=== PATIENT | male | born 1985 | race African-American/Black ===

== ENCOUNTER 2018-07-13 11:15 | Emergency (ER) | payer SELFPAY ==
[2018-07-13] MEDS ORDERED: ASPIRIN 81 MG TABLET, CHEWABLE PO ONE (12:53)
--- NOTE | 2018-07-13 12:55 | ER Document Report ---
ED Medical Screen (RME) - General Chief Complaint: Chest Pain Stated Complaint: CHEST PAIN Time Seen by Provider: 07/13/18 12:49 Mode of Arrival: Ambulatory Information source: Patient TRAVEL OUTSIDE OF THE [place] IN LAST 30 DAYS: No - HPI Patient complains to provider of: BAIRON Notes: 07/13/18 12:53 Patient here with complaints of chest pain and shortness of breath. He states that last evening he had the sudden onset of sharp chest pain making him very short of breath. He was somewhat lightheaded and was seeing spots last evening. Right now he complains of some mild tightness in his chest. No fever. No cough. No recent long trips or surgeries, no leg pain or leg swelling, no cancer, no history of DVT or PE. He denies any personal history of hypertension, high cholesterol, diabetes, CAD, drug use. He is a smoker. Exam No distress, nontoxic-appearing. Lungs clear and equal throughout. Heart sounds normal. Plan CBC, CPK, CK-MB, CMP, troponin, EKG, chest x-ray An initial examination was made on the patient as part of the triage process, and it was determined a more comprehensive evaluation was necessary. Initial labs were ordered and patient was transferred to another provider in the ED who assumed care and finished evaluation and plan. - Related Data Allergies/Adverse Reactions: No Known Allergies Allergy (Verified 02/06/16 12:19) Past Medical History Pulmonary Medical History: Reports: Hx Asthma - child until 15 - Immunizations Immunizations up to date: No Hx Diphtheria, Pertussis, Tetanus Vaccination: No Physical Exam - Vital signs Vitals: Temp Pulse Resp BP Pulse Ox 98.6 F 81 18 138/81 H 98 07/13/18 11:07/13/18 11:07/13/18 11:07/13/18 11:07/13/18 11:22 Course - Vital Signs Vital signs: Temp Pulse Resp BP Pulse Ox 98.6 F 81 18 138/81 H 98 07/13/18 11:22 07/13/18 11:22 07/13/18 11:22 07/13/18 11:22 07/13/18 11:22
[2018-07-13 13:19] LABS: ABSOLUTE EOSINOPHILS # (AUTO) 0.1 10^3/uL (0.0-0.6); ABSOLUTE LYMPHOCYTES (AUTO) 1.4 10^3/uL (0.5-4.7); ABSOLUTE MONOCYTES (AUTO) 0.3 10^3/uL (0.1-1.4); ABSOLUTE NEUT (AUTO) 3.2 10^3/uL (1.7-8.2); BASOPHILS % (AUTO) 0.5 % (0-2); EOSINOPHILS % (AUTO) 2.2 % (0-6); HEMATOCRIT 44.8 % (37.9-51.0); HEMOGLOBIN 14.9 g/dL (13.5-17.0); LYMPHOCYTES % (AUTO) 27.2 % (13-45); MEAN CORPUSCULAR HEMOGLOBIN 29.4 pg (27.0-33.4); MEAN CORPUSCULAR HGB CONC 33.3 g/dL (32.0-36.0); MEAN CORPUSCULAR VOLUME 88 fl (80-97); MONOCYTES % (AUTO) 6.3 % (3-13); PLATELET COUNT 187 10^3/uL (150-450); RED BLOOD COUNT 5.07 10^6/uL (4.35-5.55); SEGMENTED NEUTROPHILS % (AUTO) 63.8 % (42-78); TOTAL CELLS COUNTED % (AUTO) 100 %
[2018-07-13 13:37] LABS: ALANINE AMINOTRANSFERASE 24 U/L (21-72); ALBUMIN 4.4 g/dL (3.5-5.0); ALKALINE PHOSPHATASE 69 U/L (38-126); ANION GAP 11 (5-19); ASPARTATE AMINO TRANSFERASE 27 U/L (17-59); BILIRUBIN,DIRECT 0.3 mg/dL (0.0-0.4); BLOOD UREA NITROGEN 7 mg/dL (7-20); CALCIUM 9.7 mg/dL (8.4-10.2); CARBON DIOXIDE 29 mmol/L (22-30); CHLORIDE 108 mmol/L (98-107); CREATINE KINASE 99 U/L (55-170); GLUCOSE 94 mg/dL (75-110); POTASSIUM 4.5 mmol/L (3.6-5.0); SODIUM 148.1 mmol/L (137-145)
[2018-07-13 13:50] LABS: TROPONIN I < 0.012 ng/mL
--- NOTE | 2018-07-13 13:50 | RADIOLOGY REPORT (SQ) ---
EXAM DESCRIPTION: CHEST SINGLE VIEW COMPLETED DATE/TIME: 07/13/2018 1:41 pm REASON FOR STUDY: CP COMPARISON: 01/27/2012. EXAM PARAMETERS: NUMBER OF VIEWS: One view. TECHNIQUE: Single frontal radiographic view of the chest acquired. RADIATION DOSE: NA LIMITATIONS: None. FINDINGS: LUNGS AND PLEURA: No opacities, masses or pneumothorax. No pleural effusion. MEDIASTINUM AND HILAR STRUCTURES: No masses. Contour normal. HEART AND VASCULAR STRUCTURES: Heart normal in size. Normal vasculature. BONES: No acute findings. HARDWARE: None in the chest. OTHER: No other significant finding. IMPRESSION: NO ACUTE RADIOGRAPHIC FINDING IN THE CHEST. TECHNICAL DOCUMENTATION: JOB ID: [id number] 2010 [employer] [facility]- All Rights Reserved Reading location - IP/workstation name: [email or web address]
--- NOTE | 2018-07-13 18:29 | ER Document Report ---
ED General - General Chief Complaint: Chest Pain Stated Complaint: CHEST PAIN Time Seen by Provider: 07/13/18 12:49 Mode of Arrival: Ambulatory Notes: 32-year-old otherwise healthy male presents to the emergency department with chief complaint of chest pain and associated shortness of breath. He said that when he woke up this morning he had sudden onset of sharp chest pain that made him short of breath and lasted for about 10 minutes. It then went away and returned intermittently times after that but not nearly as severe. He said that he was also lightheaded and saw spots. He said the pain was initially very sharp and then felt a chest tightness. He denies fever or cough, denies any long trips or surgeries, no unilateral leg pain or swelling, no history of cancer, no history of DVT, no history of hypertension, patient is a smoker, no history of early cardiac in his family. No nausea or vomiting. No other complaints TRAVEL OUTSIDE OF THE [place] IN LAST 30 DAYS: No - Related Data Allergies/Adverse Reactions: No Known Allergies Allergy (Verified 02/06/16 12:19) Past Medical History - General Information source: Patient - Social History Smoking Status: Current Every Day Smoker Frequency of alcohol use: None Drug Abuse: None Family History: Reviewed & Not Pertinent Patient has suicidal ideation: No Patient has homicidal ideation: No Pulmonary Medical History: Reports: Hx Asthma - child until 15 Renal/ Medical History: Denies: Hx Peritoneal Dialysis - Immunizations Immunizations up to date: No Hx Diphtheria, Pertussis, Tetanus Vaccination: No Review of Systems - Review of Systems Constitutional: See HPI EENT: No symptoms reported Cardiovascular: See HPI Respiratory: See HPI Gastrointestinal: See HPI Genitourinary: No symptoms reported Male Genitourinary: No symptoms reported Musculoskeletal: No symptoms reported Skin: No symptoms reported Hematologic/Lymphatic: No symptoms reported Neurological/Psychological: See HPI Physical Exam - Vital signs Vitals: Temp Pulse Resp BP Pulse Ox 98.6 F 81 18 138/81 H 98 07/13/18 11:22 07/13/18 11:22 07/13/18 11:22 07/13/18 11:22 07/13/18 11:22 - Notes Notes: PHYSICAL EXAMINATION: Reviewed vital signs and charting by RN GENERAL: Alert, interacts well. No acute distress. HEAD: Normocephalic, atraumatic. EYES: Pupils equal and round. Extraocular movements intact. ENT: Oral mucosa moist, tongue midline. NECK: Full range of motion. Supple. Trachea midline. LUNGS: Clear to auscultation bilaterally, no wheezes, rales, or rhonchi. No respiratory distress. HEART: Regular rate and rhythm. No murmur ABDOMEN: soft, non-tender. Non-distended. Bowel sounds present. no McBurney's point tenderness, no Sofia sign. EXTREMITIES: Moves all 4 extremities spontaneously. No edema, No cyanosis. Normal distal neurovascular exam BACK: No CVAT NEUROLOGIC: Oriented and appropriate. Normal speech. PSYCH: Normal affect, normal mood. SKIN: Warm, dry, normal turgor. No rashes or lesions noted. Course - Re-evaluation Re-evalutation: 07/13/18 18:26 Overall well-appearing. Heart score 1 for risk factors. Patient with a negative cardiac work-up to include 2- troponins. Chest x-ray showed no evidence of widened mediastinum. EKG normal sinus rhythm. Patient reports currently being pain-free.. Patient able to PERC out. At this time patient with a negative cardiac work-up and he is stable for discharge. I am giving him a referral for cardiology for follow-up on stress testing as an outpatient and information for the [facility]. - Vital Signs Vital signs: Temp Pulse Resp BP Pulse Ox 98.6 F 81 14 145/92 H 100 07/13/18 11:22 07/13/18 11:22 07/13/18 14:00 07/13/18 13:43 07/13/18 14:00 - Laboratory Result Diagrams: 07/13/18 13:00 07/13/18 13:00 Laboratory results interpreted by me: 07/13/18 07/13/18 13:00 13:00 RDW 15.0 H Sodium 148.1 H Chloride 108 H Discharge - Discharge Clinical Impression: Chest pain Qualifiers: Chest pain type: unspecified Qualified Code(s): R07.9 - Chest pain, unspecified Condition: Good Disposition: HOME, SELF-CARE Additional Instructions: You were seen today for chest pain. The exact cause of your pain is unclear. However, based on your cardiac enzyme testing, chest x-ray, and EKG it does not appear that it is from an immediately life-threatening cause at this time. Although your testing here is normal is critical that you follow-up with a primary care physician for continued evaluation of this chest pain and possible stress testing. I recommended you see your physician within the next 24-48 hours to be evaluated for consideration of a stress test. Please return to emergency department immediately if you have worsening of your chest pain, shortness of breath, vomiting, become unable to exert yourself due to pain or difficulty breathing, you pass out, or have any pain that radiates into your arms, jaw, or back. Please also return if you have any additional symptoms that are concerning to you. Referrals: TYLER QURESHI MD [ACTIVE STAFF] - Follow up as needed
[2018-07-13 18:42] VITALS: BP 133/95
--- NOTE | 2018-07-13 18:46 | EKG REPORT ---
SEVERITY:- NORMAL ECG - SINUS RHYTHM : Confirmed by: Lizbeth Bah 13-Jul-2018 18:45:22
== END 2018-07-13 18:42 | disposition home or self-care (01) ==
LOC: ER 11:15
DX: R07.9 Chest pain, unspecified (principal); R06.02 Shortness of breath; F17.200 Nicotine dependence, unspecified, uncomplicated
CPT/HCPCS: 36415; 71045; 80053; 82550; 82553; 84484; 85025; 93005; 93010; 99284